=== PATIENT | male | born 1990 | race Caucasian/White ===

== ENCOUNTER 2016-06-29 08:11 | Emergency (ER) | payer OTHER ==
[~2016-06-29 08:11] MED LIST: ANTIDEPRESSANT; ATARAX PO; AUGMENTIN875 M1 PO; BACTRIM DS TABL1 TA1 PO; BACTROBAN15 GM TOP; BACTROBAN22 GM TP; DICLOFENAC PO; DICYCLOMINE HCL20 MG PO; KEFLEX PO; KEFLEX500 M1 PO; KETOPROFEN PO; NO MEDICATIONS; TRIAMCINOLONE AC1 GM EXT; VOLTAREN75 MG PO
[2016-06-29 08:57] LABS: BASOPHIL# 0.1 X10e3 (0-0.3); BASOPHIL% 0.9 % (0-2.5); EOSINOPHIL# 0.1 X10e3 (0-0.7); HEMOGLOBIN 15.2 gm/dL (13.0-16.0); LYMPHOCYTE# 1.1 X10e3 (1.0-3.5); LYMPHOCYTE% 19.2 % (17.0-45.0); MEAN CELL VOLUME 92.1 FL (83-96); MEAN CORPUSCULAR HEMOGLOBIN 31.8 PG (28-34); MEAN CORPUSCULAR HGB CONC 34.5 g/dL (30-36); MEAN PLATELET VOLUME 8.8 FL (6.5-11.5); MONOCYTE# 0.7 X10e3 (0-1.0); NEUTROPHIL# 3.7 X10e3 (1.5-7.1); NEUTROPHIL% 65.9 % (40-75); PLATELET COUNT 157 X10e3 (140-420); RED BLOOD COUNT 4.78 X10e (3.90-5.60); RED CELL DISTRIBUTION WIDTH 14.3 % (11.0-15.5); WHITE BLOOD COUNT 5.6 X10e3 (4.0-10.5)
[2016-06-29 09:00] LABS: DIFF IND NO
[2016-06-29 09:11] LABS: ALKALINE PHOSPHATASE 62 U/L (32-92); ALT (SGPT) 32 U/L (10-40); AMYLASE 15 U/L (0-46); AST (SGOT) 23 U/L (10-42); BILIRUBIN,TOTAL 0.6 mg/dL (0.2-2.0); BLOOD UREA NITROGEN 20 mg/dL (9-23); BUN/CREATININE RATIO 22.22; CALCIUM SERUM 8.4 mg/dL (8.4-10.2); CARBON DIOXIDE 25 mmol/L (22-31); CHLORIDE 99 mmol/L (100-111); CREATININE SERUM 0.9 mg/dL (0.6-1.4); GLOM FILT RATE Estimated 115.8 mL/min (>60); GLUCOSE FASTING 104 mg/dL (70-110); LIPASE 32 U/L (22-51); POTASSIUM 3.7 mmol/L (3.5-5.1); PROTEIN TOTAL SERUM 6.5 g/dL (6.0-8.3); SODIUM 128 mmol/L (135-145)
[2016-06-29 09:12] LABS: BILIRUBIN, DIRECT <0.1 mg/dL (0.0-0.2); BILIRUBIN,INDIRECT 0.5 mg/dL (0.0-0.9)
[2016-06-29 09:36] LABS: URINE SOURCE CLEAN CATCH
[2016-06-29 09:45] LABS: URINE APPEARANCE CLEAR; URINE BILIRUBIN NEG (NEG); URINE BLOOD NEG (NEG); URINE COLOR YELLOW; URINE GLUCOSE NEG (NORM); URINE KETONE NEG (NEG); URINE LEUKOCYTE ESTERASE NEG (NEG); URINE NITRATE NEG (NEG); URINE PROTEIN NEG (NEG); URINE SPECIFIC GRAVITY 1.025 (1.003-1.035); URINE UROBILINOGEN 0.2 MG/DL (NORM)
[2016-06-29 09:46] LABS: MICRO INDICATED? NO
== END 2016-06-29 10:47 | disposition home or self-care (01) ==
LOC: SED 08:11
PROVIDERS: Emergency Medicine
DX: A08.4 Viral intestinal infection, unspecified (principal); K29.70 Gastritis, unspecified, without bleeding; F17.210 Nicotine dependence, cigarettes, uncomplicated; B49 Unspecified mycosis; Z88.6 Allergy status to analgesic agent
CPT/HCPCS: 36415; 80048; 80076; 81003; 82150; 83690; 85025; 96374; 96375; 99284; C9113; J1885; J2405

== ENCOUNTER 2016-07-06 22:01 | Emergency (ER) | payer OTHER | END 2016-07-06 23:10 | disposition left against medical advice (07) | LOC: SED 22:01 | DX: Z53.21 Procedure and treatment not carried out due to patient leaving prior to being seen by health care provider (principal) ==

== ENCOUNTER 2016-10-06 19:25 | Emergency (ER) | payer OTHER ==
[~2016-10-06] VITALS: Ht 167.6 cm; Wt 63.5 kg
== END 2016-10-06 21:48 | disposition home or self-care (01) ==
LOC: SED 19:25
DX: L02.416 Cutaneous abscess of left lower limb (principal); F17.210 Nicotine dependence, cigarettes, uncomplicated; Z23 Encounter for immunization; Z88.5 Allergy status to narcotic agent
CPT/HCPCS: 10060; 90471; 90715; 99283